=== PATIENT | female | born 1945 | race Caucasian/White ===

== ENCOUNTER 2023-01-25 16:12 | Emergency (ER) | payer MEDICARE ==
[2023-01-25 16:21] VITALS: RESP 18
--- NOTE | 2023-01-25 16:30 | ED ---
Neuro HPI - General Chief Complaint: Neuro Symptoms/Deficit Stated Complaint: Poss TIA Time Seen by Provider: 01/25/23 16:29 Source: patient Mode of arrival: ambulatory Limitations: altered mental status - History of Present Illness Is the patient presenting with stroke symptoms?: No Last Known Well Date: 01/25/23 -: hour(s) Initial Comments: Marvin is a pleasant 77-year-old female who presents to the ER today for evaluation of a brief episode of difficulty speaking. Patient reports that around noon today she was on the telephone with her daughter, her daughter began asking her questions and patient states she has had trouble speaking or getting words out. Patient estimates this lasted between 90 seconds and 2 minutes. Then resolved completely. She had no headache no vision changes no facial droop no weakness in her extremities. EMS was called and evaluated her noted that her vital signs were within normal limits her glucose was normal. Patient declined transfer to the hospital. - Related Data Home Medications: Home Medications Medication Instructions Recorded Confirmed Clobetasol Propionate [Clobex .05% 1 applic TOPICAL DAILY PRN 01/25/23 01/25/23 Shampoo] Hydroxychloroquine Sulfate 200 mg PO DAILY 01/25/23 01/25/23 [Plaquenil] Ketoconazole 2% Shampoo [Nizoral] 1 applic TOPICAL DAILY PRN 01/25/23 01/25/23 Lisinopril-Hctz 20-25 mg 1 tab PO DAILY 01/25/23 01/25/23 [Zestoretic 20-25] Vit C/E/Cuperic/Zinc/Lutein 1 cap PO HS 01/25/23 01/25/23 [Preservision Lutein Softgel] traZODone HCL [Desyrel] 100 mg PO HS 01/25/23 01/25/23 Previous Rx's Medication Instructions Recorded Aspirin 81 mg PO DAILY #30 tab 01/25/23 Atorvastatin [Lipitor] 20 mg PO DAILY #30 tablet 01/25/23 Allergies/Adverse Reactions: Allergies Allergy/AdvReac Type Severity Reaction Status Date / Time Sulfa (Sulfonamide Allergy Nausea & Verified 01/25/23 17:43 Antibiotics) Vomiting Review of Systems ROS Statement: Those systems with pertinent positive or pertinent negative responses have been documented in the HPI. ROS Other: All systems not noted in ROS Statement are negative. General Exam - General Exam Comments Initial Comments: Physical Exam GENERAL: Patient is well-developed and well-nourished. Patient is nontoxic and well- hydrated and is in no distress. HENT: Normocephalic, Atraumatic. EYES: PERRL, EOMI PULMONARY: Unlabored respirations. No audible rales rhonchi or wheezing was noted. CARDIOVASCULAR: There is a regular rate and rhythm without any murmurs gallops or rubs. ABDOMEN: Soft and nontender with normal bowel sounds. SKIN: Skin is clear with no lesions or rashes and otherwise unremarkable. : Deferred NEUROLOGIC: Patient is alert and oriented x3. Moving all extremities spontaneously MUSCULOSKELETAL: Normal extremities with adequate strength and full range of motion. No lower extremity swelling or edema. No calf tenderness. PSYCHIATRIC: Normal psychiatric evaluation. Limitations: altered mental status Stroke MDM - Lab Data Result diagrams: 01/25/23 16:47 01/25/23 16:47 Lab Results 01/25/23 01/25/23 01/25/23 Range/Units 16:47 16:47 16:47 WBC 7.3 (3.8-10.6) k/uL RBC 5.27 (3.80-5.40) m/uL Hgb 15.6 (11.4-16.0) gm/dL Hct 45.8 (34.0-46.0) % MCV 86.9 (80.0-100.0) fL MCH 29.7 (25.0-35.0) pg MCHC 34.1 (31.0-37.0) g/dL RDW 12.6 (11.5-15.5) % Plt Count 194 (150-450) k/uL MPV 8.7 Neutrophils % 74 % Lymphocytes % 16 % Monocytes % 6 % Eosinophils % 3 % Basophils % 1 % Neutrophils # 5.4 (1.3-7.7) k/uL Lymphocytes # 1.2 (1.0-4.8) k/uL Monocytes # 0.4 (0-1.0) k/uL Eosinophils # 0.2 (0-0.7) k/uL Basophils # 0.0 (0-0.2) k/uL PT 10.3 (9.0-12.0) sec INR 1.0 (<1.2) APTT 18.7 L (22.0-30.0) sec Sodium 138 (137-145) mmol/L Potassium 4.1 (3.5-5.1) mmol/L Chloride 99 (98-107) mmol/L Carbon Dioxide 28 (22-30) mmol/L Anion Gap 11 mmol/L BUN 54 H (7-17) mg/dL Creatinine 0.88 (0.52-1.04) mg/dL Est GFR (CKD-EPI)AfAm 74 (>60 ml/min/1.73 sqM) Est GFR (CKD-EPI)NonAf 64 (>60 ml/min/1.73 sqM) Glucose 104 H (74-99) mg/dL Calcium 10.1 (8.4-10.2) mg/dL Total Bilirubin 0.7 (0.2-1.3) mg/dL AST 46 H (14-36) U/L ALT 17 (4-34) U/L Alkaline Phosphatase 62 (38-126) U/L Creatine Kinase 105 (30-135) U/L Troponin I (0.000-0.034) ng/mL Total Protein 8.3 H (6.3-8.2) g/dL Albumin 5.0 (3.5-5.0) g/dL 01/25/23 Range/Units 16:47 WBC (3.8-10.6) k/uL RBC (3.80-5.40) m/uL Hgb (11.4-16.0) gm/dL Hct (34.0-46.0) % MCV (80.0-100.0) fL MCH (25.0-35.0) pg MCHC (31.0-37.0) g/dL RDW (11.5-15.5) % Plt Count (150-450) k/uL MPV Neutrophils % % Lymphocytes % % Monocytes % % Eosinophils % % Basophils % % Neutrophils # (1.3-7.7) k/uL Lymphocytes # (1.0-4.8) k/uL Monocytes # (0-1.0) k/uL Eosinophils # (0-0.7) k/uL Basophils # (0-0.2) k/uL PT (9.0-12.0) sec INR (<1.2) APTT (22.0-30.0) sec Sodium (137-145) mmol/L Potassium (3.5-5.1) mmol/L Chloride (98-107) mmol/L Carbon Dioxide (22-30) mmol/L Anion Gap mmol/L BUN (7-17) mg/dL Creatinine (0.52-1.04) mg/dL Est GFR (CKD-EPI)AfAm (>60 ml/min/1.73 sqM) Est GFR (CKD-EPI)NonAf (>60 ml/min/1.73 sqM) Glucose (74-99) mg/dL Calcium (8.4-10.2) mg/dL Total Bilirubin (0.2-1.3) mg/dL AST (14-36) U/L ALT (4-34) U/L Alkaline Phosphatase (38-126) U/L Creatine Kinase (30-135) U/L Troponin I 0.028 (0.000-0.034) ng/mL Total Protein (6.3-8.2) g/dL Albumin (3.5-5.0) g/dL - NIH Stroke Scale 1a. Level of Consciousness: (0) alert 1b. LOC Questions: (0) answers correctly 1c. LOC Commands: (0) performs tasks correctly 2. Best Gaze: (0) normal 3. Visual: (0) no visual loss 4. Facial Palsy: (0) normal symmetrical movement 5a. Motor Arm Left: (0) no drift 5b. Motor Arm Right: (0) no drift 6a. Motor Leg Left: (0) no drift 6b. Motor Leg Right: (0) no drift 7. Limb Ataxia: (0) absent 8. Sensory: (0) normal 9. Best Language: (0) no aphasia 10. Dysarthria: (0) normal 11. Extinction/Inattention: (0) no abnormality - Thrombolytic Inclusion/Exclusion Thrombolytic Contraindications: NIH 0 - Medical Decision Making Patient was seen and evaluated upon arrival to ER, patient had an episode of difficulty speaking that lasted under 2 minutes earlier in the day. This is completely resolved her NIH on arrival is 0. Risk factors include age, female gender, smoking history though she quit 3 weeks ago, lupus which is chronic inflammatory. Concerning the resolution of symptoms patient had no deficits on arrival and was not a candidate for TPA. However CT and CTA were obtained and resulted with chronic ischemic changes 50% occlusion of the carotids bilaterally no acute bleeds no masses I advised the patient she could be admitted to the hospital for further workup including an echo and evaluation by neurology however patient was adamant that she didn't have time to be admitted she did not even want to come to the hospital. She would prefer outpatient follow-up closer to home [facility]. Advised the patient that TIA patient's need to be prescribed aspirin and a statin. Patient was somewhat hesitant to start any medication but was agreeable to definitely starting aspirin have a statin prescribed and she will consider it. She will follow with her primary care physician in [place]. A she and the son were advised that she is a high risk for recurrent TIA and stroke specifically the next 24-48 hours she did take aspirin she was prescribed aspirin and statin discharged home with very close return parameters. Was pt. sent in by a medical professional or institution (, PA, ASSISTED SALES REPRESENTATIVE, urgent care, hospital, or custodial...) When possible be specific @ -No Did you speak to anyone other than the patient for history (EMS, parent, family, police, friend...)? What history was obtained from this source @ -Son at bedside Did you review nursing and triage notes (agree or disagree)? Why? @ -I reviewed and agree with nursing and triage notes Were old charts reviewed (outside hosp., previous admission, EMS record, old EKG, old radiological studies, urgent care reports/EKG's, custodial records)? Report findings @ -No old charts were available for review Differential Diagnosis (chest pain, altered mental status, abdominal pain women, abdominal pain men, vaginal bleeding, weakness, fever, dyspnea, syncope, headache, dizziness, GI bleed, back pain, seizure, CVA, palpatations, mental health, musculoskeletal)? @ -not applicable EKG interpreted by me (3pts min.). @ -As above X-rays interpreted by me (1pt min.). @ -None done CT interpreted by me (1pt min.). @ -None done U/S interpreted by me (1pt. min.). @ -None done What testing was considered but not performed or refused? (CT, X-rays, U/S, labs)? Why? @ -MRI, admission for echo patient did not want to be admitted What meds were considered but not given or refused? Why? @ -None Did you discuss the management of the patient with other professionals (professionals i.e. Dr., PA, ASSISTED SALES REPRESENTATIVE, lab, RT, psych nurse, director of social work, cafeteria team leader, teacher, electorate officer, onsite case manager)? Give summary @ -No Was smoking cessation discussed for >3mins.? @ -No Was critical care preformed (if so, how long)? @ -No Were there social determinants of health that impacted care today? How? (Homelessness, low income, unemployed, alcoholism, drug addiction, transportation, low edu. Level, literacy, decrease access to med. care, [facility], rehab)? @ -No Was there de-escalation of care discussed even if they declined (Discuss DNR or withdrawal of care, Hospice)? DNR status @ -No What co-morbidities impacted this encounter? (DM, HTN, Smoking, COPD, CAD, Cancer, CVA, ARF, Chemo, Hep., AIDS, mental health diagnosis, sleep apnea, morbid obesity)? @ -Smoking discontinued 3 weeks ago Was patient admitted / discharged? Hospital course, mention meds given and route, prescriptions, significant lab abnormalities, going to OR and other pertinent info. @ -Discharge Undiagnosed new problem with uncertain prognosis? @ -Yes Drug Therapy requiring intensive monitoring for toxicity (Heparin, Nitro, Insulin, Cardizem)? @ -No Were any procedures done? @ -No Diagnosis/symptom? @ -TIA Acute, or Chronic, or Acute on Chronic? @ -Acute, resolved Uncomplicated (without systemic symptoms) or Complicated (systemic symptoms)? @ -Uncomplicated Side effects of treatment? @ -No Exacerbation, Progression, or Severe Exacerbation? @ -No Poses a threat to life or bodily function? How? (Chest pain, [place], [place], pneumonia, PE, COPD, DKA, ARF, appy, cholecystitis, CVA, Diverticulitis, Homicidal, Suicidal, threat to staff... and all critical care pts) @ -Yes, high risk for recurrent TIA or stroke - EKG Data -: EKG Interpreted by Me EKG shows normal: sinus rhythm Rate: normal 01/25/23 21:17 EKG was ordered and obtained by me EKG was obtained at 1658 rate is 68 rhythm is narrow complex regular with P-wave before each QRS this is a sinus rhythm Past Medical History Past Medical History: Hypertension Additional Past Medical History / Comment(s): Lupus Past Surgical History: Cholecystectomy Past Psychological History: No Psychological Hx Reported Smoking Status: Never smoker Past Alcohol Use History: Rare Past Drug Use History: None Reported Course Vital Signs 01/25/23 01/25/23 16:17 19:32 Temperature 98.2 F 97.6 F Pulse Rate 80 66 Respiratory 18 18 Rate Blood Pressure 140/75 141/80 O2 Sat by Pulse 98 99 Oximetry Disposition Clinical Impression: TIA (transient ischemic attack) Disposition: HOME SELF-CARE Condition: Stable Instructions (If sedation given, give patient instructions): Transient Ischemic Attack (ED) Additional Instructions: As discussed you need follow up with your primary care for medication management and possible further workup including MRI or Echo and referrals to neurology or cardiology Prescriptions: Aspirin 81 mg PO DAILY #30 tab Atorvastatin [Lipitor] 20 mg PO DAILY #30 tablet Is patient prescribed a controlled substance at d/c from ED?: No Referrals: Darleen Wright MD [Primary Care Provider] - 1-2 days
[2023-01-25 17:06] LABS: Basophils % (A) 1 %; Eosinophils # (A) 0.2 k/uL (0-0.7); Eosinophils % (A) 3 %; HCT 45.8 % (34.0-46.0); HGB 15.6 gm/dL (11.4-16.0); Lymphocytes # (A) 1.2 k/uL (1.0-4.8); Lymphocytes % (A) 16 %; MCH 29.7 pg (25.0-35.0); MCHC 34.1 g/dL (31.0-37.0); MCV 86.9 fL (80.0-100.0); Mean Platelet Volume 8.7; Monocytes # (A) 0.4 k/uL (0-1.0); Monocytes % (A) 6 %; Neutrophils # (A) 5.4 k/uL (1.3-7.7); Neutrophils % (A) 74 %; Platelet Count 194 k/uL (150-450); RBC 5.27 m/uL (3.80-5.40); RDW 12.6 % (11.5-15.5); WBC 7.3 k/uL (3.8-10.6)
[2023-01-25 17:18] LABS: ALT 17 U/L (4-34); AST 46 U/L (14-36); African American GFR (CKD) 74 (>60 ml/min/1.73 sqM); Alkaline Phosphatase 62 U/L (38-126); Anion Gap 11 mmol/L; Blood Urea Nitrogen 54 mg/dL (7-17); Calcium 10.1 mg/dL (8.4-10.2); Carbon Dioxide 28 mmol/L (22-30); Chloride 99 mmol/L (98-107); Creatine Kinase 105 U/L (30-135); Glucose 104 mg/dL (74-99); Non-African American GFR(CKD) 64 (>60 ml/min/1.73 sqM); Sodium 138 mmol/L (137-145); Total Bilirubin 0.7 mg/dL (0.2-1.3); Total Protein 8.3 g/dL (6.3-8.2)
[2023-01-25 17:21] LABS: Potassium 4.1 mmol/L (3.5-5.1)
[2023-01-25 17:29] LABS: Prothrombin Time 10.3 sec (9.0-12.0)
[2023-01-25 17:34] LABS: Partial Thromboplastin Time 18.7 sec (22.0-30.0)
--- NOTE | 2023-01-25 17:45 | XR ---
EXAMINATION TYPE: XR chest 2V DATE OF EXAM: 01/25/2023 COMPARISON: NONE HISTORY: Shortness of breath TECHNIQUE: Frontal and lateral views of the chest are obtained. FINDINGS: Scattered senescent parenchymal changes noted. Hyperinflation compatible with COPD. No evidence for infiltrate. No evidence for atelectasis. Heart size is stable. Mediastinal structures are stable and grossly unremarkable. No evidence for hilar prominence. Degenerative changes dorsal spine. IMPRESSION: 1. No evidence for acute pulmonary disease.
--- NOTE | 2023-01-25 17:57 | CT ---
EXAMINATION TYPE: CT brain wo con DATE OF EXAM: 01/25/2023 COMPARISON: None HISTORY: weakness, ams CT DLP: 1123.[address] of the brain was performed. The ventricles, basal cisterns and sulci overlying the cerebral convexities demonstrate mild enlargem ent. Small remote lacunar infarct right basal ganglia. There is no evidence for intracranial hemorrhage or sulcal effacement. There is decreased attenuation about the periventricular white matter and deep white matter of both c erebral hemispheres, compatible with chronic small vessel ischemia. Differential diagnosis does inclu de demyelination. No mass effects are seen.No midline shift. Osseous calvarium is intact. If symptoms persist consider MRI. IMPRESSION: 1. Age related atrophic and chronic small vessel ischemic change without acute intracranial process s een at this time.
--- NOTE | 2023-01-25 18:19 | CT ---
EXAMINATION TYPE: CT angio head neck DATE OF EXAM: 01/25/2023 COMPARISON: None HISTORY: weakness, ams CT DLP: 442.8 mGycm CONTRAST: Performed with IV Contrast, patient injected with 65cc mL of Isovue 370. Combination Contrast CTA cervical carotids and [place] CTA cervical carotids with 3-D recons truction Contrast CTA of the cervical carotids was performed 3-D reconstruction imaging obtained at a separate workstation. Right carotid system: Mild plaque is seen of the right common carotid artery. There is moderate calc ified plaque also noted at the carotid bulb and proximal ICA. Estimated diameter reduction of 50-60% . ECA is patent. Right vertebral artery appears unremarkable. Left carotid system: Mild plaque is seen of the left common carotid artery. There is mild to moderat e calcified plaque also noted at the carotid bulb and proximal ICA. Estimated diameter reduction of 50%. ECA is patent. Left vertebral artery appears unremarkable. IMPRESSION: 1. Moderate calcified plaque right carotid bulb and proximal right ICA resulting in 50-60% diameter r eduction. 2. Mild to moderate calcified plaque left carotid bulb and proximal left ICA resulting in estimated d iameter reduction of 50%. CTA [place] with 3-D reconstruction Contrast CTA of the [place] was performed 3-D reconstruction imaging obtained at a separate workstation. Vertebrobasilar system as well as intracranial portions of the internal carotid arteries and their ma du tributaries are patent. There is mild luminal narrowing at the suprasellar left ICA. I do not see evidence for sizable aneurysm or vascular malformation. Please note MRI provides greater sensitivit y and specificity. Visualized brain appears grossly unremarkable. IMPRESSION: 1. No CT evidence to suggest large vessel occlusion at this time.There is mild luminal narrowing at t he suprasellar left ICA. NASCET criteria was used in interpretation of this exam?
[2023-01-25] MEDS ORDERED: ASPIRIN 81 MG PO STA (18:44)
[2023-01-25] MEDS ORDERED: ATORVASTATIN 40 MG TAB PO STA (18:44)
[2023-01-25 19:34] VITALS: BP 141/80; PULSE 66; TEMP 97.6
== END 2023-01-25 19:34 | disposition home or self-care (01) ==
LOC: EC 16:12
DX: G45.9 Transient cerebral ischemic attack, unspecified (principal); I10 Essential (primary) hypertension; Z88.2 Allergy status to sulfonamides; Z79.899 Other long term (current) drug therapy
CPT/HCPCS: 99285 ×2; 36415; 93005; 80053; 82550; 84484; 85025; 85610; 85730; 71046; 70496; 70450; 70498; Q9967